=== PATIENT | female | born 1965 | race Caucasian/White ===

== ENCOUNTER 2017-10-30 06:01 | Emergency (ER) | payer MEDICAID, OTHER ==
[2017-10-30 06:17] VITALS: O2SAT 97
--- NOTE | 2017-10-30 07:40 | C.PDOC ---
History Of Present Illness 51-year-old female presents to the emergency department with complaints of a productive cough for the past three days, that is associated with a sore throat and runny nose. Denies fever, chills, shortness of breath, chest pain, dizziness , or any other associated symptoms. No other complaints at this time. Time Seen by Provider: 10/30/17 07:06 Chief Complaint (Nursing): Cough, Cold, Congestion History Per: Patient History/Exam Limitations: no limitations Onset/Duration Of Symptoms: Days Current Symptoms Are (Timing): Still Present Associated Symptoms: Sore Throat, Cough, Nasal Congestion Severity: Mild Past Medical History Reviewed: Historical Data, Nursing Documentation, Vital Signs Vital Signs: Last Vital Signs Temp 98.0 F 10/30/17 07:52 Pulse 67 10/30/17 07:52 Resp 18 10/30/17 07:52 BP 121/85 10/30/17 07:52 Pulse Ox 97 10/30/17 07:55 - Medical History PMH: Asthma, Bronchitis, Depression, Hypercholesterolemia, Hypothyroidism Family History: States: No Known Family Hx - Social History Hx Tobacco Use: No Hx Alcohol Use: No Hx Substance Use: No - Immunization History Hx Tetanus Toxoid Vaccination: No Hx Influenza Vaccination: No Hx Pneumococcal Vaccination: No Review Of Systems Except As Marked, All Systems Reviewed And Found Negative. Constitutional: Negative for: Fever, Chills ENT: Positive for: Nose Discharge Cardiovascular: Negative for: Chest Pain Respiratory: Positive for: Cough. Negative for: Shortness of Breath Gastrointestinal: Negative for: Nausea, Vomiting, Abdominal Pain, Diarrhea Genitourinary: Negative for: Dysuria, Hematuria Physical Exam - Physical Exam Appears: Well, Non-toxic, No Acute Distress Skin: Normal Color, Warm, Dry, No Rash Eye(s): bilateral: Normal Inspection Nose: Other (rhinorrhea) Oral Mucosa: Moist Lips: Normal Appearing Throat: Erythema (mild), No Exudate Neck: Normal ROM, Supple Chest: Symmetrical Cardiovascular: Rhythm Regular Respiratory: Normal Breath Sounds, No Rales, No Rhonchi, No Wheezing Gastrointestinal/Abdominal: Normal Exam, Bowel Sounds, Soft, No Tenderness Extremity: Normal ROM Neurological/Psych: Oriented x3 ED Course And Treatment O2 Sat by Pulse Oximetry: 97 (RA) Pulse Ox Interpretation: Normal - Radiology CXR: Interpreted by Me, Viewed By Me CXR Interpretation: Yes: No Acute Disease. No: Infiltrates Progress Note: CXR ordered and reviewed , (-) for infiltrates. Patient given Rxs for Naprosyn, Chloraseptic spray and Tessalon. She was instructed to rest, drink plenty of fluids, and follow up with PMD/clinic in 1-2 days. She understands she should return to ED if symptoms worsen. Disposition Counseled Patient/Family Regarding: Studies Performed, Diagnosis, Need For Followup, Rx Given - Disposition Referrals: [facility] at [facility] [Outside] Disposition: HOME/ ROUTINE Disposition Time: 07:50 Condition: STABLE Additional Instructions: SEGUIMIENTO CON HYATT MDICO / CLNICA EN 1-2 BUTT USE MEDICAMENTOS SEGN SEA NECESARIO BEBER MUCHO LQUIDO REGRESE AL ELISA DE EMERGENCIA SI LOS SNTOMAS EMPEORAN Prescriptions: Benzonatate [Tessalon Perles] 100 mg PO BID PRN #15 sgl PRN Reason: Cough Naproxen 375 mg PO BID PRN #20 tablet PRN Reason: pain Phenol/Glycerin [Chloraseptic Max [place]] 1 spray MM Q6 PRN #1 spray PRN Reason: THROAT PAIN Instructions: Upper Respiratory Infection (ED), Viral Syndrome (ED) Forms: [employer] (Nicaraguan) Print Language: AZERBAIJANI - POA Present On Arrival: None - Clinical Impression Clinical Impression: Upper respiratory infection, Viral disease - Scribe Statement The provider has reviewed the documentation as recorded by the Scribe (Carter Meier) All medical record entries made by the Scribe were at my direction and personally dictated by me. I have reviewed the chart and agree that the record accurately reflects my personal performance of the history, physical exam, medical decision making, and the department course for this patient. I have also personally directed, reviewed, and agree with the discharge instructions and disposition.
[2017-10-30 07:54] VITALS: BP 121/85; PULSE 67; RESP 18; TEMP 98
--- NOTE | 2017-10-30 08:49 | RAD ---
HISTORY: productive cough COMPARISON: No prior. TECHNIQUE: Chest PA and lateral FINDINGS: LUNGS: No pulmonary infiltrate. 8 mm smooth nodule in the lingular segment of the left upper lobe. Questionably calcified. This could represent a calcified granuloma. However, consider further evaluation with computed tomography. PLEURA: No significant pleural effusion identified. No pneumothorax apparent. CARDIOVASCULAR: Normal. OSSEOUS STRUCTURES: No significant abnormalities. VISUALIZED UPPER ABDOMEN: Normal. OTHER FINDINGS: None. IMPRESSION: 8 mm nodule in the lingular segment left upper lobe. Recommend further evaluation with computed tomography. Possible calcified granuloma but this is not determined with certainty on the basis of this examination.
== END 2017-10-30 07:54 | disposition home or self-care (01) ==
LOC: C.ER 06:01
DX: J06.9 Acute upper respiratory infection, unspecified (principal); B34.9 Viral infection, unspecified; E78.00 Pure hypercholesterolemia, unspecified; E03.9 Hypothyroidism, unspecified

== ENCOUNTER 2018-05-10 14:09 | Emergency (ER) | payer OTHER ==
[2018-05-10] MEDS ORDERED: Sodium Chloride 0.9% 1,000 ML IV ONE (15:07)
[2018-05-10 15:19] LABS: BASO % 0.4 % (0.0-2.0); EOS % 0.4 % (0.0-4.0); HEMOGLOBIN 13.5 g/dL (11.0-16.0); LYMPH # 1.5 K/uL (1.0-4.3); LYMPH % 42.7 % (20.0-40.0); MEAN CORPUSCULAR HEMOGLOBIN 30.7 pg (27.0-31.0); MEAN CORPUSCULAR HGB CONC 34.5 g/dL (33.0-37.0); MEAN PLATELET VOLUME 8.4 fL (7.2-11.7); MONO # 0.3 K/uL (0.0-0.8); MONO % 8.2 % (0.0-10.0); NEUT # 1.7 K/uL (1.8-7.0); NEUT % 48.3 % (50.0-75.0); NRBC % 0.1 % (0.0-2.0); RBC 4.41 Mil/uL (3.80-5.20); RED CELL DISTRIBUTION WIDTH 13.7 % (11.5-14.5); WHITE BLOOD COUNT 3.5 K/uL (4.8-10.8)
--- NOTE | 2018-05-10 15:24 | C.PDOC ---
History Of Present Illness 52 year old female with a history of hyperlipidemia and diabetes presents to the emergency department with complaints of abdominal pain which is worse in her epigastric region. Patient also complaints of nausea, but denies vomiting or any other complaints at this time. Time Seen by Provider: 05/10/18 14:20 Chief Complaint (Nursing): Abdominal Pain History Per: Patient History/Exam Limitations: no limitations Onset/Duration Of Symptoms: Days (3) Current Symptoms Are (Timing): Still Present Location Of Pain/Discomfort: Epigastric Quality Of Discomfort: "Pain" Associated Symptoms: Nausea. denies: Vomiting Past Medical History Reviewed: Historical Data, Nursing Documentation, Vital Signs Vital Signs: Last Vital Signs Temp 98.2 F 05/10/18 16:18 Pulse 61 05/10/18 16:18 Resp 18 05/10/18 16:18 BP 120/79 05/10/18 16:18 Pulse Ox 97 05/10/18 16:18 - Medical History PMH: Asthma, Bronchitis, Depression, Hypercholesterolemia, Hypothyroidism Surgical History: No Surg Hx Family History: States: No Known Family Hx - Social History Hx Tobacco Use: No Hx Alcohol Use: No Hx Substance Use: No - Immunization History Hx Tetanus Toxoid Vaccination: No Hx Influenza Vaccination: No Hx Pneumococcal Vaccination: No Review Of Systems Except As Marked, All Systems Reviewed And Found Negative. Gastrointestinal: Positive for: Nausea, Abdominal Pain. Negative for: Vomiting Physical Exam - Physical Exam Appears: Non-toxic, No Acute Distress Skin: Warm, Dry Head: Atraumatic, Normacephalic Eye(s): bilateral: Normal Inspection Nose: Normal Oral Mucosa: Moist Neck: Normal, Supple Chest: Symmetrical Cardiovascular: Rhythm Regular, No Murmur Gastrointestinal/Abdominal: Soft, Tenderness (epigastric), No Guarding, No Rebound Neurological/Psych: Oriented x3, Normal Speech, Normal Cognition ED Course And Treatment - Laboratory Results Result Diagrams: 05/10/18 15:16 05/10/18 15:16 ECG: Interpreted By Me, Viewed By Me ECG Rhythm: Sinus Rhythm (63) Interpretation Of ECG: No ST/T Wave changes O2 Sat by Pulse Oximetry: 99 (RA) Pulse Ox Interpretation: Normal Medical Decision Making Medical Decision Making: Plan: EKG CMP Lipase Troponin CBC Protonix 40mg IVP NaCl IV Fluids Zofran 4mg PO Urinalysis suspet gastritis pud gerd - labs imaging pending 400: pt reassesd abd soft nottp. pain all resolved. no ruq ttp. no rlq ttp. pt asking for dc. Disposition - Disposition Referrals: [facility] [Outside] [facility] at [facility] [Outside] Phillip Garcia MD [Staff Provider] - Disposition: HOME/ ROUTINE Disposition Time: 04:00 Condition: STABLE Prescriptions: Famotidine [Pepcid] 20 mg PO DAILY #20 tab Instructions: Acute Abdomen (Belly Pain) Forms: [employer] (Micronesian) Print Language: ITALIAN - Clinical Impression Clinical Impression: Abdominal pain - Scribe Statement The provider has reviewed the documentation as recorded by the Scribe (Lam Caio) Provider Attestation: All medical record entries made by the Scribe were at my direction and personally dictated by me. I have reviewed the chart and agree that the record accurately reflects my personal performance of the history, physical exam, medical decision making, and the department course for this patient. I have also personally directed, reviewed, and agree with the discharge instructions and disposition.
[2018-05-10 15:30] LABS: SQUAMOUS EPITHIAL 2 /hpf (0-5); URINE BILIRUBIN NEGATIVE (NEGATIVE); URINE BLOOD NEGATIVE (NEGATIVE); URINE CLARITY Clear (Clear); URINE COLOR Yellow (YELLOW); URINE GLUCOSE (UA) NORMAL (Normal); URINE LEUKOCYTE ESTERASE NEG Leu/uL (Negative); URINE PROTEIN NEGATIVE (NEGATIVE); URINE UROBILINOGEN NORMAL mg/dL (0.2-1.0)
[2018-05-10] MEDS ORDERED: Sodium Chloride 0.9% 1,000 ML ONE (15:31)
[2018-05-10 15:32] LABS: ALB/GLOB RATIO 1.3 (1.0-2.1); ALBUMIN 4.5 g/dL (3.5-5.0); ALT/SGPT 27 U/L (9-52); AST/SGOT 27 U/L (14-36); BLOOD UREA NITROGEN 10 mg/dL (7-17); CALCIUM 9.2 mg/dl (8.6-10.4); GFR AFRICAN-AMERICAN > 60; GFR NON-AFRICAN AMERICAN > 60; LIPASE 154 U/L (23-300)
[2018-05-10 16:26] VITALS: BP 120/79; PULSE 61; RESP 18; TEMP 98.2
[2018-05-10 17:14] VITALS: O2SAT 99
== END 2018-05-10 16:18 | disposition home or self-care (01) ==
LOC: C.ER 14:09
DX: R10.9 Unspecified abdominal pain (principal); E11.9 Type 2 diabetes mellitus without complications; E78.00 Pure hypercholesterolemia, unspecified
CPT/HCPCS: 80053; 81001; 83690; 84484; 85025; 96361; 96374; 96375; 99285; C9113; J2405; J7030